=== PATIENT | female | born 1985 | race Caucasian/White ===

== ENCOUNTER 2017-01-31 18:41 | Emergency (ER) | payer MEDICAID ==
[~2017-01-31] VITALS: Ht 154.9 cm; Wt 52.0 kg
[~2017-01-31 18:41] MED LIST: DOXY100C PO; IBUP800T23 PO; MACR100C2 PO; PRED-503 PO
[2017-01-31 18:50] VITALS: BP 117/86; PULSE 98; RESP 16; TEMP 99.2; O2SAT 98
[2017-01-31 20:46] LABS: GLUCOSE,URINE NEG (NEG); KETONE, URINE NEG (NEG); NITRITE,URINE NEG (NEG)
[2017-01-31 20:56] LABS: BLOOD, URINE MOD (NEG)
[2017-01-31 20:58] LABS: COMMENT (UR) CULT NOT INDICATED; CULTURE IF INDICATED CULT NOT INDICATED; URINE COLOR YELLOW (YELLW/STRAW)
== END 2017-01-31 22:44 | disposition left against medical advice (07) ==
LOC: PHED 18:41
DX: R10.9 Unspecified abdominal pain (principal); N89.8 Other specified noninflammatory disorders of vagina
CPT/HCPCS: 81001; 99281

== ENCOUNTER 2017-02-01 17:38 | Emergency (ER) | payer MEDICAID ==
[~2017-02-01] VITALS: Ht 154.9 cm; Wt 52.0 kg
[2017-02-01 17:42] VITALS: BP 104/74; PULSE 96; RESP 14; TEMP 98.6; O2SAT 96
--- NOTE | 2017-02-01 18:15 | PD ---
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) Tobacco Use: Yes (1/2 ppd) Substance Use: No Allergies-Medications (Allergen,Severity, Reaction): Coded Allergies: Doxycycline (Verified Allergy, Severe, Rash, 02/01/17) Flagyl (Verified Adverse Reaction, Severe, GI upset, 02/01/17) Reported Meds & Prescriptions Reported Meds & Active Scripts Active No Active Prescriptions or Reported Medications Data Data Last Documented VS Vital Signs Date Time Temp Pulse Resp B/P Pulse Ox O2 Delivery O2 Flow Rate FiO2 02/01/17 18:38 15 02/01/17 17:42 98.6 96 104/74 96 Room Air Orders Urinalysis - C+S If Indicated (02/01/17 18:10) Ed Urine Pregnancytest Poc (02/01/17 18:29) Beta Hcg (Quant/Titer) (02/01/17 18:40) Complete Blood Count With Diff (02/01/17 18:40) Comprehensive Metabolic Panel (02/01/17 18:40) Sodium Chlor 0.9% 1000 Ml Inj (Ns 1000 M (02/01/17 18:45) Labs Laboratory Tests Test 02/01/17 02/01/17 18:25 18:50 Urine Color YELLOW Urine Turbidity CLEAR Urine pH 6.5 Urine Specific [place] 1.003 Urine Protein NEG mg/dL Urine Glucose (UA) NEG mg/dL Urine Ketones NEG mg/dL Urine Occult Blood TRACE Urine Nitrite NEG Urine Bilirubin NEG Urine Leukocyte Esterase NEG Urine RBC 0-3 /hpf Urine WBC 3-5 /hpf Urine Squamous Epithelial 0-5 /hpf Cells Microscopic Urinalysis Comment CULT NOT INDICATED White Blood Count 5.8 TH/MM3 Red Blood Count 4.56 MIL/MM3 Hemoglobin 14.0 GM/DL Hematocrit 41.2 % Mean Corpuscular Volume 90.3 FL Mean Corpuscular Hemoglobin 30.6 PG Mean Corpuscular Hemoglobin 33.9 % Concent Red Cell Distribution Width 11.7 % Platelet Count 301 TH/MM3 Mean Platelet Volume 7.6 FL Neutrophils (%) (Auto) 48.4 % Lymphocytes (%) (Auto) 39.2 % Monocytes (%) (Auto) 4.6 % Eosinophils (%) (Auto) 3.1 % Basophils (%) (Auto) 4.7 % Neutrophils # (Auto) 2.7 TH/MM3 Lymphocytes # (Auto) 2.3 TH/MM3 Monocytes # (Auto) 0.3 TH/MM3 Eosinophils # (Auto) 0.2 TH/MM3 Basophils # (Auto) 0.3 TH/MM3 CBC Comment DIFF FINAL Differential Comment Sodium Level 142 MEQ/L Potassium Level 4.1 MEQ/L Chloride Level 105 MEQ/L Carbon Dioxide Level 29.2 MEQ/L Anion Gap 8 MEQ/L Blood Urea Nitrogen 5 MG/DL Random Glucose 83 MG/DL Calcium Level 8.8 MG/DL Albumin 4.4 GM/DL MDM Scripts No Active Prescriptions or Reported Meds Sarahy Ag Feb 01, 2017 18:15
[2017-02-01 18:35] LABS: BLOOD, URINE TRACE (NEG); GLUCOSE,URINE NEG (NEG); KETONE, URINE NEG (NEG); NITRITE,URINE NEG (NEG); PH, URINE 6.5 (5.0-8.5)
[2017-02-01 18:42] LABS: URINE COLOR YELLOW (YELLW/STRAW)
[2017-02-01 18:43] LABS: COMMENT (UR) CULT NOT INDICATED; CULTURE IF INDICATED CULT NOT INDICATED; RBC, URINE 0-3 /hpf (0-3); SQUAMOUS EPITHELIAL CELL URINE 0-5 /hpf (0-5)
[2017-02-01] MEDS ORDERED: SODIUM CHLOR 0.9% 1000 ML INJ 1,000 ML IV ONE (18:45)
--- NOTE | 2017-02-01 18:55 | PD ---
HPI Chief Complaint: Poke In Problem/Complaint Time Seen by Provider: 18:13 Travel History International Travel<30 days: No Contact w/Intl Traveler<30days: No Traveled to known affect area: No History of Present Illness HPI 31-year-old female presents for evaluation of generalized malaise, fatigue, generalized body aches. She tells me that she believes she had a spontaneous miscarriage 4 days ago. She believes she may have a UTI. She is . She is having some light vaginal spotting today. Her LMP was 01/02/17. She is having some mild intermittent pelvic cramping. [facility] Past Medical History Medical History: Denies Significant Hx Anxiety: Yes Diminished Hearing: No Genitourinary: Yes (Herpes) Immunizations Current: Yes Tetanus Vaccination: > 5 Years Influenza Vaccination: No ?: Not LMP: 01/02/17 : 5 Para: 1 Miscarriage: 1 : 3 Past Surgical History Surgical History: No Previous Surgery Social History Alcohol Use: No Tobacco Use: Yes (11/22 PPD) Substance Use: No Allergies-Medications (Allergen,Severity, Reaction): Coded Allergies: Doxycycline (Verified Allergy, Severe, Rash, 02/01/17) Flagyl (Verified Adverse Reaction, Severe, GI upset, 02/01/17) Reported Meds & Prescriptions Reported Meds & Active Scripts Active No Active Prescriptions or Reported Medications Review of Systems Except as stated in HPI: all other systems reviewed are Neg Physical Exam Narrative GENERAL: Well-developed, well-nourished, comfortable, no acute distress. SKIN: Warm and dry. HEAD: Atraumatic. Normocephalic. EYES: Pupils equal and round. No scleral icterus. No injection or drainage. ENT: Mucous membranes pink and moist. NECK: Trachea midline. No JVD. No nuchal rigidity. CARDIOVASCULAR: Regular rate and rhythm. RESPIRATORY: No accessory muscle use. Clear to auscultation. Breath sounds equal bilaterally. GASTROINTESTINAL: Abdomen soft, non-tender, nondistended. MUSCULOSKELETAL: No obvious deformities. No clubbing. No cyanosis. No edema. NEUROLOGICAL: Awake and alert. No obvious cranial nerve deficits. Motor grossly within normal limits. Normal speech. PSYCHIATRIC: Appropriate mood and affect; insight and judgment normal. Data Data Last Documented VS Vital Signs Date Time Temp Pulse Resp B/P Pulse Ox O2 Delivery O2 Flow Rate FiO2 02/01/17 19:20 86 18 98/55 98 Room Air 02/01/17 17:42 98.6 Orders Urinalysis - C+S If Indicated (02/01/17 18:10) Ed Urine Pregnancytest Poc (02/01/17 18:29) Beta Hcg (Quant/Titer) (02/01/17 18:40) Complete Blood Count With Diff (02/01/17 18:40) Comprehensive Metabolic Panel (02/01/17 18:40) Sodium Chlor 0.9% 1000 Ml Inj (Ns 1000 M (02/01/17 18:45) Labs Laboratory Tests Test 02/01/17 02/01/17 18:25 18:50 Urine Color YELLOW Urine Turbidity CLEAR Urine pH 6.5 Urine Specific [place] 1.003 Urine Protein NEG mg/dL Urine Glucose (UA) NEG mg/dL Urine Ketones NEG mg/dL Urine Occult Blood TRACE Urine Nitrite NEG Urine Bilirubin NEG Urine Leukocyte Esterase NEG Urine RBC 0-3 /hpf Urine WBC 3-5 /hpf Urine Squamous Epithelial 0-5 /hpf Cells Microscopic Urinalysis Comment CULT NOT INDICATED White Blood Count 5.8 TH/MM3 Red Blood Count 4.56 MIL/MM3 Hemoglobin 14.0 GM/DL Hematocrit 41.2 % Mean Corpuscular Volume 90.3 FL Mean Corpuscular Hemoglobin 30.6 PG Mean Corpuscular Hemoglobin 33.9 % Concent Red Cell Distribution Width 11.7 % Platelet Count 301 TH/MM3 Mean Platelet Volume 7.6 FL Neutrophils (%) (Auto) 48.4 % Lymphocytes (%) (Auto) 39.2 % Monocytes (%) (Auto) 4.6 % Eosinophils (%) (Auto) 3.1 % Basophils (%) (Auto) 4.7 % Neutrophils # (Auto) 2.7 TH/MM3 Lymphocytes # (Auto) 2.3 TH/MM3 Monocytes # (Auto) 0.3 TH/MM3 Eosinophils # (Auto) 0.2 TH/MM3 Basophils # (Auto) 0.3 TH/MM3 CBC Comment DIFF FINAL Differential Comment Sodium Level 142 MEQ/L Potassium Level 4.1 MEQ/L Chloride Level 105 MEQ/L Carbon Dioxide Level 29.2 MEQ/L Anion Gap 8 MEQ/L Blood Urea Nitrogen 5 MG/DL Creatinine 0.86 MG/DL Estimat Glomerular Filtration 77 ML/MIN Rate Random Glucose 83 MG/DL Calcium Level 8.8 MG/DL Total Bilirubin 0.9 MG/DL Aspartate Amino Transf 16 U/L (AST/SGOT) Alanine Aminotransferase 17 U/L (ALT/SGPT) Alkaline Phosphatase 36 U/L Total Protein 7.6 GM/DL Albumin 4.4 GM/DL Human Chorionic Gonadotropin, LESS THAN 1 Quant MIU/ML MDM Medical Decision Making Medical Screen Exam Complete: Yes Emergency Medical Condition: Yes Differential Diagnosis Spontaneous , anemia, UTI, cystitis, septic , menstrual period Narrative Course Initial vital signs show heart rate 96, blood pressure 104/74, pulse ox 96% on room air, oral temp of 98.6F. CBC is unremarkable. CMP is unremarkable. Beta hCG is negative. UA shows trace occult blood, otherwise within normal limits, not suggestive of UTI. The patient was made aware of all findings. She is resting comfortably. Her abdominal exam is benign. She still feels generalized malaise and weak. I offered to perform a pelvic exam, however she states that she is sexually active with one partner whom she is to, and reports only slight vaginal spotting at this time. No foul-smelling vaginal discharge. At this point I believe she is stable for discharge home with outpatient follow-up with a primary care physician this week. She was informed on when to return to the emergency department. She verbalizes understanding and agreement with plan. Diagnosis Primary Impression: Malaise Referrals: Primary Care Physician 3 days Additional Instructions: Follow-up with a primary care physician this week. Stay hydrated with plenty of fluids. Return to the emergency department for worsening symptoms or any other concerns. Scripts No Active Prescriptions or Reported Meds Disposition: 01 DISCHARGE HOME Condition: Stable Feliciano Russo MD Feb 01, 2017 18:55
[2017-02-01 19:00] LABS: AUTOMATED NEUTROPHIL # 2.7 TH/MM3 (1.8-7.7); BASOPHIL # 0.3 TH/MM3 (0-0.2); BASOPHIL % 4.7 % (0.0-2.0); EOSINOPHIL # 0.2 TH/MM3 (0-0.4); EOSINOPHIL % 3.1 % (0.0-4.0); HEMATOCRIT 41.2 % (35.0-46.0); HEMO FLAGS DIFF FINAL; LYMPH % 39.2 % (9.0-44.0); LYMPHOCYTE # 2.3 TH/MM3 (1.0-4.8); MEAN CELL VOLUME 90.3 FL (80.0-100.0); MEAN CORPUSCULAR HEMOGLOBIN 30.6 PG (27.0-34.0); MEAN CORPUSCULAR HGB CONC 33.9 % (32.0-36.0); MONO % 4.6 % (0.0-8.0); NEUT % 48.4 % (16.0-70.0); PLATELET COUNT 301 TH/MM3 (150-450); RED BLOOD COUNT 4.56 MIL/MM3 (4.00-5.30); RED CELL DISTRIBUTION WIDTH 11.7 % (11.6-17.2); WHITE BLOOD COUNT 5.8 TH/MM3 (4.0-11.0)
[2017-02-01 19:07] LABS: CHLORIDE 105 MEQ/L (98-107); POTASSIUM 4.1 MEQ/L (3.5-5.1); SODIUM (NA) 142 MEQ/L (136-145)
[2017-02-01 19:11] LABS: ANION GAP 8 MEQ/L (5-15); BICARBONATE 29.2 MEQ/L (21.0-32.0); BLOOD UREA NITROGEN 5 MG/DL (7-18)
[2017-02-01 19:14] LABS: ALT (GPT) 17 U/L (10-53); AST (GOT) 16 U/L (15-37)
[2017-02-01 19:15] LABS: GLOMERULAR FILTRATION RATE 77 ML/MIN (>89)
[2017-02-01 19:16] LABS: TOTAL BILIRUBIN ADULT 0.9 MG/DL (0.2-1.0)
[2017-02-01 19:17] LABS: ALKALINE PHOSPHATASE 36 U/L (45-117)
[2017-02-01 19:19] LABS: BETA HCG QUANT LESS THAN 1 MIU/ML (0-5)
[2017-02-01 19:20] VITALS: BP 98/55; PULSE 86; RESP 18; O2SAT 98
== END 2017-02-01 19:58 | disposition home or self-care (01) ==
LOC: PHED 17:38
DX: R53.81 Other malaise (principal); R10.2 Pelvic and perineal pain; F17.210 Nicotine dependence, cigarettes, uncomplicated
CPT/HCPCS: 80053; 81001; 84702; 84703; 85025; 99284; J7030

== ENCOUNTER 2017-05-06 15:31 | Emergency (ER) | payer MEDICAID ==
[~2017-05-06] VITALS: Ht 154.9 cm; Wt 51.7 kg
[2017-05-06 15:38] VITALS: BP 131/82; PULSE 100; RESP 16; TEMP 98.9; O2SAT 97
[2017-05-06 16:06] LABS: BLOOD, URINE NEG (NEG); GLUCOSE,URINE NEG (NEG); KETONE, URINE NEG (NEG); NITRITE,URINE NEG (NEG)
--- NOTE | 2017-05-06 16:09 | PD ---
HPI . 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 She does not have any associated symptoms such as vaginal discharge, dyspareunia, urinary tract symptoms. She states that her pain seems to be exacerbated by sitting. She rates her pain as 3/10. PFSH Past Medical History Anxiety: Yes Diminished Hearing: No Genitourinary: Yes (Herpes) Immunizations Current: Yes Tetanus Vaccination: > 5 Years Influenza Vaccination: No ?: Not LMP: 04/18/17 : 5 Para: 1 Miscarriage: 1 : 3 Past Surgical History Surgical History: No Previous Surgery Social History Alcohol Use: No Tobacco Use: Yes (1/2 PPD) Substance Use: No Allergies-Medications (Allergen,Severity, Reaction): Coded Allergies: Doxycycline (Verified Allergy, Severe, Rash, 05/06/17) Flagyl (Verified Adverse Reaction, Severe, GI upset, 05/06/17) Reported Meds & Prescriptions Reported Meds & Active Scripts Active No Active Prescriptions or Reported Medications Review of Systems Except as stated in HPI: all other systems reviewed are Neg General / Constitutional: No: Fever, Chills Gastrointestinal: Positive: Abdominal Pain, Constipation, No: Nausea, Vomiting , Diarrhea Genitourinary: Positive: Pelvic Pain, No: Urgency, Dysuria, Dyspareunia, Discharge Physical Exam Narrative GENERAL: SKIN: Warm and dry. HEAD: Atraumatic. Normocephalic. EYES: Pupils equal and round. ENT: No nasal bleeding or discharge. Mucous membranes pink and moist. NECK: Trachea midline. CARDIOVASCULAR: Regular rate and rhythm. RESPIRATORY: No accessory muscle use. GASTROINTESTINAL: Abdomen soft, non-tender, nondistended. : Normal female external genitalia. No discharge in the vaginal vault. No cervical motion tenderness. No adnexal tenderness or masses. Uterus is small and nontender. MUSCULOSKELETAL: No obvious deformities. No edema. NEUROLOGICAL: Awake and alert. No obvious cranial nerve deficits. Motor grossly within normal limits. Normal speech. PSYCHIATRIC: Appropriate mood and affect; insight and judgment normal. Data Data Last Documented VS Vital Signs Date Time Temp Pulse Resp B/P Pulse Ox O2 Delivery O2 Flow Rate FiO2 05/06/17 15:38 98.9 100 16 131/82 97 Orders Gc And Chlamydia Pcr (05/06/17 15:43) Wet Prep Profile (05/06/17 15:43) Urinalysis - C+S If Indicated (05/06/17 15:43) Ed Urine Pregnancytest Poc (05/06/17 15:43) Abdomen, Flat & Upright (05/06/17 16:05) Labs Laboratory Tests Test 05/06/17 15:55 Urine Color YELLOW Urine Turbidity CLEAR Urine pH 6.0 Urine Specific [place] 1.004 Urine Protein NEG mg/dL Urine Glucose (UA) NEG mg/dL Urine Ketones NEG mg/dL Urine Occult Blood NEG Urine Nitrite NEG Urine Bilirubin NEG Urine Leukocyte Esterase NEG Urine RBC 0-3 /hpf Urine WBC 0-2 /hpf Urine Squamous Epithelial 0-5 /hpf Cells Microscopic Urinalysis Comment CULT NOT INDICATED Clue Cells (Wet Prep) NONE SEEN Vaginal Trichomonas (Wet Prep) NONE SEEN Vaginal Yeast (Wet Prep) NONE SEEN MDM Medical Decision Making Medical Screen Exam Complete: Yes Emergency Medical Condition: Yes Differential Diagnosis Differential diagnosis of pelvic pain includes but is not limited to UTI, PID, ectopic , spontaneous AB, constipation, viral illness Narrative Course This patient presents with about a 2 week history of pelvic pain. She has a benign pelvic exam. test is negative. She does state that she is occasionally constipated. Therefore, I have ordered a flat and upright of her abdomen. UA neg. wet prep neg. abd X-ray: Supine and upright views of the abdomen were performed. The abdominal bowel gas pattern is normal. No air fluid levels are seen. No abnormal masses, calcifications, or organomegaly is seen. The visualized lower lungs are clear. No evidence of free intraperitoneal gas. The osseous structures are unremarkable. No etiology for this patient's pelvic pain has been discovered. Diagnosis Primary Impression: Pelvic pain in female Patient Instructions: General Instructions, Pelvic Pain in Women (DC) Scripts No Active Prescriptions or Reported Meds Disposition: 01 DISCHARGE HOME Condition: Stable Demi Hampton MD May 06, 2017 16:09
[2017-05-06 16:12] LABS: URINE COLOR YELLOW (YELLW/STRAW)
[2017-05-06 16:13] LABS: COMMENT (UR) CULT NOT INDICATED; CULTURE IF INDICATED CULT NOT INDICATED; RBC, URINE 0-3 /hpf (0-3); SQUAMOUS EPITHELIAL CELL URINE 0-5 /hpf (0-5); WBC, URINE 0-2 /hpf (0-5)
--- NOTE | 2017-05-06 16:38 | RADHPO ---
EXAM DATE/TIME: 05/06/2017 16:16 [facility] COMPARISON: No previous studies available for comparison. INDICATIONS : Bilateral lower quadrant abdominal pain. MEDICAL HISTORY : None. SURGICAL HISTORY : None. ENCOUNTER: Initial ACUITY: 1 month PAIN SCORE: 3/10 LOCATION: Bilateral lower quadrant abdomen FINDINGS: Supine and upright views of the abdomen were performed. The abdominal bowel gas pattern is normal. No air fluid levels are seen. No abnormal masses, calcifications, or organomegaly is seen. The visu alized lower lungs are clear. No evidence of free intraperitoneal gas. The osseous structures are u nremarkable. CONCLUSION: Negative for free air. Sebas Holt MD FACR on May 06, 2017 at 16:35 Board Certified Radiologist. This report was verified electronically.
[2017-05-06 16:55] VITALS: BP 100/69; PULSE 87; RESP 14; O2SAT 98
[2017-05-06 19:06] LABS: CHLAMYDIA PCR NOT DETECTED (NOT DETECT); NEISSERIA PCR NOT DETECTED (NOT DETECT)
== END 2017-05-06 17:01 | disposition home or self-care (01) ==
LOC: PHED 15:31
DX: R10.2 Pelvic and perineal pain (principal)
CPT/HCPCS: 74020; 81001; 84703; 87210; 87491; 87591; 99284

== ENCOUNTER 2017-05-11 19:12 | Emergency (ER) | payer MEDICAID ==
[~2017-05-11] VITALS: Ht 165.1 cm; Wt 52.8 kg
[2017-05-11 19:49] VITALS: BP 114/70; PULSE 88; RESP 18; TEMP 99.2; O2SAT 100
--- NOTE | 2017-05-11 20:50 | PD ---
HPI Chief Complaint: Injury Time Seen by Provider: 20:30 Travel History International Travel<30 days: No Contact w/Intl Traveler<30days: No Traveled to known affect area: No History of Present Illness HPI 31-year-old female presents emergency department for evaluation of puncture wound to the left foot prior to arrival. Patient reports that while walking outside in flip flops she stepped on a mikael tack which went through her flip- flop and superficially pierced her foot. She reports that she immediately cleansed the wound with soap and water. She reports it only bled very mildly for short time and then stopped. She reports mild tenderness at the site. She does not believe there is any foreign body retained in the foot. She presented to the emergency room for tetanus shot. [facility] Past Medical History Medical History: Denies Significant Hx Anxiety: Yes Diminished Hearing: No Genitourinary: Yes (Herpes) Immunizations Current: Yes Tetanus Vaccination: Unknown Influenza Vaccination: No ?: Not LMP: 05/09/17 : 5 Para: 1 Miscarriage: 2 : 2 Past Surgical History Surgical History: No Previous Surgery Social History Alcohol Use: No (FORMER) Tobacco Use: Yes (1/2 PPD) Substance Use: No (DENIES) Allergies-Medications (Allergen,Severity, Reaction): Coded Allergies: Doxycycline (Verified Allergy, Severe, Rash, 05/06/17) Flagyl (Verified Adverse Reaction, Severe, GI upset, 05/06/17) Reported Meds & Prescriptions Reported Meds & Active Scripts Active No Active Prescriptions or Reported Medications Review of Systems Except as stated in HPI: all other systems reviewed are Neg Physical Exam Narrative GENERAL: Well-nourished, well-developed patient. SKIN: Focused skin assessment warm/dry. HEAD: Normocephalic. EYES: No scleral icterus. No injection or drainage. NECK: Supple, trachea midline. No JVD or lymphadenopathy. CARDIOVASCULAR: Regular rate and rhythm without murmurs, gallops, or rubs. RESPIRATORY: Breath sounds equal bilaterally. No accessory muscle use. GASTROINTESTINAL: Abdomen soft, non-tender, nondistended. MUSCULOSKELETAL: No cyanosis, or edema. Left foot: Superficial nonbleeding puncture wound. The wound is very difficult to find its so small. The area is nontender. No evidence of retained foreign body. No active bleeding. No surrounding erythema. BACK: Nontender without obvious deformity. No CVA tenderness. Data Data Last Documented VS Vital Signs Date Time Temp Pulse Resp B/P Pulse Ox O2 Delivery O2 Flow Rate FiO2 05/11/17 19:51 88 18 100 Room Air 05/11/17 19:49 99.2 114/70 [facility] Medical Decision Making Medical Screen Exam Complete: Yes Emergency Medical Condition: Yes Differential Diagnosis Plantar puncture wound, abrasion, very unlikely retained foreign body Narrative Course 31-year-old female since emergency department for evaluation of a left plantar puncture wound caused by a nail through her flip-flop. The wound is very superficial and do not suspect retained foreign body. Patient was offered x- rays to rule out foreign body which she declined. We discussed risks of puncture wounds. She agrees to close follow-up for recheck of the wound. Return precautions discussed. Tetanus immunization be updated today. Diagnosis Primary Impression: Puncture wound of plantar aspect of foot Qualified Code: S91.332A - Puncture wound of plantar aspect of foot, left, initial encounter Referrals: Primary Care Physician Additional Instructions: Take Tylenol or Motrin as needed for pain. Keep an eye on the area checking it daily for signs of redness, swelling, increased pain. If you developed these symptoms you need to return to emergency department or follow-up with your primary care doctor. Scripts No Active Prescriptions or Reported Meds Disposition: 01 DISCHARGE HOME Condition: Stable Sophy Jenkins May 11, 2017 20:50
[2017-05-11] MEDS ORDERED: TETANUS/DIPHTHERIA TOXOID ADULT 0.5 ML VIAL IM ONE (21:00)
== END 2017-05-11 21:00 | disposition home or self-care (01) ==
LOC: PHEFT 19:12
DX: S91.332A Puncture wound without foreign body, left foot, initial encounter (principal); F17.210 Nicotine dependence, cigarettes, uncomplicated; Z23 Encounter for immunization; W45.0XXA Nail entering through skin, initial encounter; Y93.01 Activity, walking, marching and hiking; Y92.9 Unspecified place or not applicable; Y99.8 Other external cause status
CPT/HCPCS: 90471; 90714

== ENCOUNTER 2017-10-14 02:05 | Emergency (ER) | payer MEDICAID ==
[~2017-10-14] VITALS: Ht 154.9 cm; Wt 50.0 kg
[2017-10-14 02:06] VITALS: BP 128/77; PULSE 110; RESP 15; TEMP 98.3; O2SAT 98
--- NOTE | 2017-10-14 02:36 | PD ---
HPI Chief Complaint: Injury Time Seen by Provider: 02:31 Travel History International Travel<30 days: No Contact w/Intl Traveler<30days: No Traveled to known affect area: No History of Present Illness HPI Patient comes emergency Department complaining of right thumb pain after she hyperextended it coming down on it shortly prior to arrival. Patient states it was bent all the way back then it went back to normal position. Patient applied ice prior to coming to the emergency department that helped some. Patient complaining of pain over the first metacarpal throbbing like in nature that radiates throughout her thumb. Pain is worse with certain movements. Patient is right-hand dominant. Denies . PFSH Past Medical History Anxiety: Yes Diminished Hearing: No Genitourinary: Yes Immunizations Current: Yes Tetanus Vaccination: < 5 Years Influenza Vaccination: No ?: Not LMP: 09/19/17 : 5 Para: 1 Miscarriage: 2 : 2 Past Surgical History Surgical History: No Previous Surgery Social History Alcohol Use: No (FORMER) Tobacco Use: Yes (1/2 PPD) Substance Use: No (DENIES) Allergies-Medications (Allergen,Severity, Reaction): Coded Allergies: doxycycline (Unverified Allergy, Severe, Rash, 10/14/17) metronidazole (Unverified Adverse Reaction, Severe, GI upset, 10/14/17) Reported Meds & Prescriptions Reported Meds & Active Scripts Active No Active Prescriptions or Reported Medications Review of Systems Except as stated in HPI: all other systems reviewed are Neg Physical Exam Narrative GENERAL: Well-developed, well nourished, in no acute distress, and non-ill appearing. SKIN: Focused skin assessment warm and dry. HEAD: Atraumatic. Normocephalic. EYES: Pupils equal and round. EOMI. No scleral icterus. No injection or drainage. ENT: No nasal bleeding or discharge. Mucous membranes pink and moist. NECK: Trachea midline. Supple. No nuclear rigidity. RESPIRATORY: No accessory muscle use. No respiratory distress. MUSCULOSKELETAL: No obvious deformities. No clubbing. No cyanosis. No edema. Full range of motion. Wrist: FROM and equal BL with passive flexion, extension, and pronation/supination. Capillary refill less than 2 seconds distal to injury and equal BL. FROM distal to injury and equal BL. Strength distal to injury equal BL. NV intact distal to injury. Flexion and extension of thumb equal BL. Equal strength and movement with abduction/adductions of BL fingers. Electric Tape Slitter strength equal BL. No tenderness to the anatomical snuffbox. Patient reports tenderness to palpation over distal aspect of first metacarpal right hand. There is no soft tissue swelling, ecchymosis, or crepitus. NEUROLOGICAL: Awake and alert. No obvious cranial nerve deficits. Motor grossly within normal limits. Normal speech. PSYCHIATRIC: Appropriate mood and affect; insight and judgment normal. Data Data Last Documented VS Vital Signs Date Time Temp Pulse Resp B/P (MAP) Pulse Ox O2 Delivery O2 Flow Rate FiO2 10/14/17 03:30 10/14/17 02:39 Room Air 10/14/17 02:06 98.3 110 15 98 Orders Orders Ice/Cold Pack (10/14/17 02:31) Finger ([id number]) (10/14/17 ) Ibuprofen (Motrin) (10/14/17 02:45) Splint Or Brace Apply/Monitor (10/14/17 02:51) Ed Discharge Order (10/14/17 03:29) MDM Medical Decision Making Medical Screen Exam Complete: Yes Emergency Medical Condition: Yes Differential Diagnosis Fracture, sprain, dislocation, contusion Narrative Course There is no clinical evidence for fracture. There is no clinical evidence to suspect bony injury by exam. Radiographic examination revealed no fracture seen at this time. No obvious ligamental injury or internal derangement is noted at this time. The distal extremity appears neurovascularly intact, without evidence of neurovascular injury nor compartment syndrome. Tendon exam also was intact. The effected finger was splinted. The patient was discharged with sprain and splint care instructions and given warnings for vascular compromise. The patient is to follow up with hand surgeon. The patient agrees with plan. Patient in no obvious distress upon re-evaluation. All pertinent Radiology result(s) discussed with patient. Any questions/concerns in reference to patient diagnosis/condition discussed and clarified prior to patient's discharge. Reinforced sheer importance of close follow up with patient's primary physician or primary care clinic. Instructed patient to return to ED immediately, if symptoms return/worsen. Patient showed understanding of above instructions. Further instructions and recommendations were detailed in discharge paperwork. Patient ambulated without difficulty out of ED at discharge. Diagnosis Primary Impression: Sprain of right thumb Qualified Codes: S63.601A - Unspecified sprain of right thumb, initial encounter Referrals: Antonio Fairbanks MD Patient Instructions: Finger Sprain (ED), General Instructions, Splint Care (DC ) Additional Instructions: Follow-up with your primary care physician and/or hand surgeon in 3-5 days for reevaluation. Apply ice to affected area 20 minutes per hour as needed for pain. Use [id number] Tylenol and/or ibuprofen as needed for pain. Follow instructions on the packaging. Return to the emergency department if symptoms get worse. Scripts No Active Prescriptions or Reported Meds Disposition: 01 DISCHARGE HOME Condition: Stable Tenzin Ovalle Oct 14, 2017 02:36
[2017-10-14] MEDS ORDERED: IBUPROFEN 800 MG TAB PO ONE (02:45)
--- NOTE | 2017-10-14 03:20 | RADRPT ---
EXAM DATE/TIME: 10/14/2017 00:37 [facility] COMPARISON: No previous studies available for comparison. INDICATIONS : Thumb pain. MEDICAL HISTORY : None. SURGICAL HISTORY : None. ENCOUNTER: Initial ACUITY: 1 day PAIN SCORE: 3/10 LOCATION: Right upper extremity hand, thumb, and metacarpal phalangeal joint. FINDINGS: Examination of the first digit of the right hand demonstrates no evidence of fracture or dislocation. No radiopaque foreign bodies are seen. The soft tissues are intact. CONCLUSION: Unremarkable exam. Blake Gandara MD on October 14, 2017 at 3:18 Board Certified Radiologist. This report was verified electronically.
== END 2017-10-14 03:44 | disposition home or self-care (01) ==
LOC: NEPD 02:05
DX: S63.601A Unspecified sprain of right thumb, initial encounter (principal); F41.9 Anxiety disorder, unspecified; F17.200 Nicotine dependence, unspecified, uncomplicated; X50.9XXA Other and unspecified overexertion or strenuous movements or postures, initial encounter
CPT/HCPCS: 73140; 99283; L3808

== ENCOUNTER 2017-11-12 02:04 | Emergency (ER) | payer MEDICAID ==
[~2017-11-12] VITALS: Ht 154.9 cm; Wt 50.0 kg
[2017-11-12 02:05] VITALS: BP 129/62; PULSE 86; RESP 16; TEMP 98.6; O2SAT 96
[2017-11-12] MEDS ORDERED: AMOX875T PO (03:18)
--- NOTE | 2017-11-12 03:21 | PD ---
HPI Chief Complaint: Cold / Flu Symptoms Time Seen by Provider: 03:17 Travel History International Travel<30 days: No Contact w/Intl Traveler<30days: No Traveled to known affect area: No History of Present Illness HPI This patient was examined in the presence of the nurse. 32-year-old female presents for evaluation of sore throat. Symptoms started 2 days ago. Aggravated by swallowing, sore type of pain, no leaving factors. She endorses associated subjective fevers as well as a slight cough and congestion. Denies rash, recent travel. She reports that her daughter had similar symptoms 2 weeks ago. No other complaints. [facility] Past Medical History Anxiety: Yes Diminished Hearing: No Genitourinary: Yes Immunizations Current: Yes ?: Not LMP: 10/21/17 : 5 Para: 1 Miscarriage: 2 : 2 Past Surgical History Surgical History: No Previous Surgery Social History Alcohol Use: No (FORMER) Tobacco Use: Yes (QUIT) Substance Use: No Allergies-Medications (Allergen,Severity, Reaction): Coded Allergies: doxycycline (Unverified Allergy, Severe, Rash, 11/12/17) metronidazole (Unverified Adverse Reaction, Severe, GI upset, 11/12/17) Reported Meds & Prescriptions Reported Meds & Active Scripts Active Amoxicillin 875 Mg Tab 875 Mg PO BID 10 Days Review of Systems Except as stated in HPI: all other systems reviewed are Neg Physical Exam Narrative GENERAL: Well-developed well-nourished female in no acute distress SKIN: Warm and dry. HEAD: Atraumatic. Normocephalic. EYES: Pupils equal and round. No scleral icterus. No injection or drainage. ENT: No nasal bleeding or discharge. Mucous membranes pink and moist. There is oropharyngeal erythema and exudate formation. Uvula midline with no mass effect. NECK: Trachea midline. No JVD. Tender anterior cervical lymphadenopathy is present. CARDIOVASCULAR: Regular rate and rhythm. No murmur appreciated. RESPIRATORY: No accessory muscle use. Clear to auscultation. Breath sounds equal bilaterally. GASTROINTESTINAL: Abdomen soft, non-tender, nondistended. Hepatic and splenic margins not palpable. Data Data Last Documented VS Vital Signs Date Time Temp Pulse Resp B/P (MAP) Pulse Ox O2 Delivery O2 Flow Rate FiO2 11/12/17 02:05 98.6 86 16 129/62 (84) 96 Room Air Orders Orders Influenzae A/B Antigen (11/12/17 02:21) Group A Rapid Strep Screen (11/12/17 02:21) Strep Culture (Group A) (11/12/17 02:35) Ed Discharge Order (11/12/17 03:18) Ketorolac Inj (Toradol Inj) (11/12/17 03:30) Amoxicillin (Trimox) (11/12/17 03:30) MDM Medical Decision Making Medical Screen Exam Complete: Yes Emergency Medical Condition: Yes Medical Record Reviewed: Yes Differential Diagnosis Exudative pharyngitis, tonsillitis, peritonsillar abscess, infectious mononucleosis, herpangina, epiglottitis, retropharyngeal abscess Narrative Course 32-year-old female with sore throat and subjective fevers for 2 days. Examination reveals exudative pharyngitis with tender anterior cervical lymphadenopathy. Although rapid strep screen was negative her symptoms are most consistent with streptococcal pharyngitis and therefore pending streptococcal culture results she will be started on amoxicillin. She is stable for discharge. Diagnosis Primary Impression: Exudative pharyngitis Additional Instructions: Medication as prescribed. Stay well hydrated well-nourished. Tylenol or Motrin for pain and fever. Return for any emergent medical conditions. Med/Other Pt SpecificInfo: Prescription(s) given Scripts Amoxicillin (Amoxicillin) 875 Mg Tab 875 MG PO BID for Infection for 10 Days, #19 TAB 0 Refills Prov: Carla Cruz DO 11/12/17 Disposition: 01 DISCHARGE HOME Condition: Stable Juan Ramon Feng Nov 12, 2017 03:21
[2017-11-12] MEDS ORDERED: AMOXICILLIN 875 MG TAB PO ONE (03:30)
[2017-11-12] MEDS ORDERED: KETOROLAC TROMETHAMINE 60 MG/2 ML (IM) VIAL IM ONE (03:30)
== END 2017-11-12 03:39 | disposition home or self-care (01) ==
LOC: NEPD 02:04
DX: J02.9 Acute pharyngitis, unspecified (principal); R05 Cough; R09.81 Nasal congestion; F41.9 Anxiety disorder, unspecified; Z88.8 Allergy status to other drugs, medicaments and biological substances; Z87.891 Personal history of nicotine dependence
CPT/HCPCS: 87081; 87804; 87880; 96372; 99283; J1885

== ENCOUNTER 2017-12-10 15:36 | Emergency (ER) | payer MEDICAID ==
[~2017-12-10] VITALS: Ht 154.9 cm; Wt 52.0 kg
[~2017-12-10 15:36] MED LIST changes: +AMOX875T PO; -DOXY100C PO; -IBUP800T23 PO; -MACR100C2 PO; -PRED-503 PO
[2017-12-10 15:39] VITALS: BP 122/69; PULSE 117; RESP 20; TEMP 98.2; O2SAT 98
--- NOTE | 2017-12-10 16:26 | PD ---
HPI Chief Complaint: GI Complaint Time Seen by Provider: 15:54 Travel History International Travel<30 days: No Contact w/Intl Traveler<30days: No Traveled to known affect area: No History of Present Illness HPI 32-year-old female is emergency department with question with spotting and bleeding since yesterday. She also has left-sided lower abdominal cramping. Patient's last menstrual period was 11/12/2017. Patient's urine in the department is very faintly positive. Patient states spotting and intermittent bleeding through the day today. This started yesterday. She has no nausea or vomiting. She has no fever or chills. No urinary symptoms. No diarrhea. PFSH Past Medical History Medical History: Denies Significant Hx Anxiety: Yes Diminished Hearing: No Genitourinary: Yes Immunizations Current: Yes Influenza Vaccination: No ?: Not LMP: 11/12/17 : 5 Para: 1 Miscarriage: 2 : 2 Past Surgical History Surgical History: No Previous Surgery Social History Alcohol Use: No (FORMER) Tobacco Use: Yes (QUIT) Substance Use: No Allergies-Medications (Allergen,Severity, Reaction): Coded Allergies: doxycycline (Unverified Allergy, Severe, Rash, 12/10/17) metronidazole (Unverified Adverse Reaction, Severe, GI upset, 12/10/17) Reported Meds & Prescriptions Reported Meds & Active Scripts Active Amoxicillin 875 Mg Tab 875 Mg PO BID 10 Days Review of Systems Except as stated in HPI: all other systems reviewed are Neg General / Constitutional: No: Fever Eyes: No: Visual changes HENT: No: Headaches Cardiovascular: No: Chest Pain or Discomfort Respiratory: No: Shortness of Breath Gastrointestinal: No: Abdominal Pain Genitourinary: No: Dysuria Musculoskeletal: No: Pain Skin: No Rash Neurologic: No: Weakness Psychiatric: No: Depression Endocrine: No: Polydipsia Hematologic/Lymphatic: No: Easy Bruising Physical Exam Narrative GENERAL: Patient is quite anxious but otherwise in no acute distress. SKIN: Warm and dry. Color. Normal turgor. HEAD: Atraumatic. Normocephalic. EYES: Pupils equal and round. No scleral icterus. No injection or drainage. ENT: No nasal bleeding or discharge. Mucous membranes pink and moist. Pharynx is clear. Airways patent. NECK: Trachea midline. Supple and nontender. CARDIOVASCULAR: Regular rate and rhythm. No murmurs gallops or rubs. RESPIRATORY: No accessory muscle use. Clear to auscultation. Breath sounds equal bilaterally. GASTROINTESTINAL: Abdomen soft, mild left lower quadrant discomfort, nondistended. Hepatic and splenic margins not palpable. Patient is noted to angulated without difficulty and 6 crosslegged on the bed. MUSCULOSKELETAL: Extremities without clubbing, cyanosis, or edema. No obvious deformities. NEUROLOGICAL: Awake and alert. No obvious cranial nerve deficits. Motor grossly within normal limits. Five out of 5 muscle strength in the arms and legs. Normal speech. PSYCHIATRIC: Appropriate mood and affect; insight and judgment normal. Data Data Last Documented VS Vital Signs Date Time Temp Pulse Resp B/P (MAP) Pulse Ox O2 Delivery O2 Flow Rate FiO2 12/10/17 15:54 17 12/10/17 15:39 98.2 117 122/69 (86) 98 Orders Orders Beta Hcg (Quant/Titer) (12/10/17 16:22) Complete Blood Count With Diff (12/10/17 16:22) Comprehensive Metabolic Panel (12/10/17 16:22) Us Pelvis (Ques Preg/Ectopic) (12/10/17 ) Urinalysis - C+S If Indicated (12/10/17 16:22) Ed Urine Pregnancytest Poc (12/10/17 16:22) Labs Laboratory Tests Test 12/10/17 16:44 White Blood Count 17.6 TH/MM3 Red Blood Count 4.33 MIL/MM3 Hemoglobin 13.4 GM/DL Hematocrit 39.4 % Mean Corpuscular Volume 90.9 FL Mean Corpuscular Hemoglobin 31.0 PG Mean Corpuscular Hemoglobin Concent 34.1 % Red Cell Distribution Width 13.1 % Platelet Count 309 TH/MM3 Mean Platelet Volume 7.4 FL Neutrophils (%) (Auto) 81.4 % Lymphocytes (%) (Auto) 12.3 % Monocytes (%) (Auto) 5.6 % Eosinophils (%) (Auto) 0.3 % Basophils (%) (Auto) 0.4 % Neutrophils # (Auto) 14.3 TH/MM3 Lymphocytes # (Auto) 2.2 TH/MM3 Monocytes # (Auto) 1.0 TH/MM3 Eosinophils # (Auto) 0.1 TH/MM3 Basophils # (Auto) 0.1 TH/MM3 CBC Comment DIFF FINAL Differential Comment Urine Color LIGHT-YELLOW Urine Turbidity CLEAR Urine pH 5.5 Urine Specific [place] 1.005 Urine Protein NEG mg/dL Urine Glucose (UA) NEG mg/dL Urine Ketones NEG mg/dL Urine Occult Blood SMALL Urine Nitrite NEG Urine Bilirubin NEG Urine Urobilinogen LESS THAN 2.0 MG/DL Urine Leukocyte Esterase NEG Urine RBC LESS THAN 1 /hpf Urine WBC 1 /hpf Urine Squamous Epithelial Cells 1 /hpf Microscopic Urinalysis Comment CULT NOT INDICATED Blood Urea Nitrogen 6 MG/DL Creatinine 0.92 MG/DL Random Glucose 81 MG/DL Total Protein 7.6 GM/DL Albumin 4.3 GM/DL Calcium Level 9.4 MG/DL Alkaline Phosphatase 46 U/L Aspartate Amino Transf (AST/SGOT) 15 U/L Alanine Aminotransferase (ALT/SGPT) 19 U/L Total Bilirubin 1.6 MG/DL Sodium Level 141 MEQ/L Potassium Level 3.7 MEQ/L Chloride Level 105 MEQ/L Carbon Dioxide Level 29.1 MEQ/L Anion Gap 7 MEQ/L Estimat Glomerular Filtration Rate 71 ML/MIN Human Chorionic Gonadotropin, Quant LESS THAN 1 MIU/ML MDM Medical Decision Making Medical Screen Exam Complete: Yes Emergency Medical Condition: Yes Differential Diagnosis Very early . Threatened . Ectopic . Narrative Course Patient is medically stable at time of exam. Labs ordered including CBC, CMP, serum hCG, urinalysis. Urine was mildly positive. Ultrasound of the pelvis is ordered to rule out ectopic . CBC shows leukocytosis of 17.6 without significant findings otherwise. Urinalysis was unremarkable. CMP is normal. HCG is less than 1. Ultrasound also unremarkable. Patient is felt to be starting her normal period, without viable . This could've been a very early spontaneous . Patient follow-up with her primary care or ENVIRONMENTAL PROFESSIONAL. Diagnosis Primary Impression: Vaginal bleeding Referrals: Modeling And Simulation Analyst Patient Instructions: General Instructions, Miscarriage (ED) Additional Instructions: CBC shows leukocytosis of 17.6 without significant findings otherwise. Urinalysis was unremarkable. CMP is normal. HCG is less than 1. Ultrasound also unremarkable. Patient is felt to be starting her normal period, without viable . This could've been a very early spontaneous . Patient follow-up with her primary care or ENVIRONMENTAL PROFESSIONAL. Med/Other Pt SpecificInfo: No Meds Exist/No RX given Disposition: DISCHARGE HOME Condition: Stable Thai Root Dec 10, 2017 16:26
--- NOTE | 2017-12-10 16:42 | PD ---
Physical Exam Date Seen by Provider: Dec 10, 2017 Narrative Patient presents concerned that she has an ectopic . Data Data Last Documented VS Vital Signs Date Time Temp Pulse Resp B/P (MAP) Pulse Ox O2 Delivery O2 Flow Rate FiO2 12/10/17 15:54 17 12/10/17 15:39 98.2 117 122/69 (86) 98 Orders Orders Beta Hcg (Quant/Titer) (12/10/17 16:22) Complete Blood Count With Diff (12/10/17 16:22) Comprehensive Metabolic Panel (12/10/17 16:22) Us Pelvis (Ques Preg/Ectopic) (12/10/17 ) Urinalysis - C+S If Indicated (12/10/17 16:22) Ed Urine Pregnancytest Poc (12/10/17 16:22) MDM Supervised Visit with BABATUNDE: Yes Narrative Course I, Dr. Hampton, have reviewed the advance practice practitioner's documentation and am in agreement, met with the patient face to face, made the diagnosis, and the medical decision making was done by me. *My assessment and Findings: The patient has been ambulatory about the department in no distress. She does not appear to have any pain with ambulation. Urine test is faintly positive. Quantitative hCG and ultrasound are pending. Please see Jose Root PA-C's note for results of laboratory and radiographic evaluation, ED course, final diagnosis and disposition Condition: Stable Demi Hampton MD Dec 10, 2017 16:42
[2017-12-10 17:08] LABS: BILIRUBIN, URINE NEG (NEG); BLOOD, URINE SMALL (NEG); GLUCOSE,URINE NEG (NEG); KETONE, URINE NEG (NEG); NITRITE,URINE NEG (NEG); PH, URINE 5.5 (5.0-8.5); SQUAMOUS EPITHELIAL CELL URINE 1 /hpf (0-5); URINE COLOR LIGHT-YELLOW (YELLW/STRAW); URINE LEUKOCYTE ESTERASE NEG (NEG)
[2017-12-10 17:09] LABS: AUTOMATED NEUTROPHIL # 14.3 TH/MM3 (1.8-7.7); BASOPHIL # 0.1 TH/MM3 (0-0.2); BASOPHIL % 0.4 % (0.0-2.0); EOSINOPHIL # 0.1 TH/MM3 (0-0.4); EOSINOPHIL % 0.3 % (0.0-4.0); HEMATOCRIT 39.4 % (35.0-46.0); HEMOGLOBIN 13.4 GM/DL (11.6-15.3); LYMPH % 12.3 % (9.0-44.0); LYMPHOCYTE # 2.2 TH/MM3 (1.0-4.8); MEAN CELL VOLUME 90.9 FL (80.0-100.0); MEAN CORPUSCULAR HGB CONC 34.1 % (32.0-36.0); MEAN PLATELET VOLUME 7.4 FL (7.0-11.0); MONO % 5.6 % (0.0-8.0); NEUT % 81.4 % (16.0-70.0); PLATELET COUNT 309 TH/MM3 (150-450); RED BLOOD COUNT 4.33 MIL/MM3 (4.00-5.30); RED CELL DISTRIBUTION WIDTH 13.1 % (11.6-17.2); WHITE BLOOD COUNT 17.6 TH/MM3 (4.0-11.0)
[2017-12-10 17:24] LABS: ALBUMIN 4.3 GM/DL (3.4-5.0); AST (GOT) 15 U/L (15-37); BICARBONATE 29.1 MEQ/L (21.0-32.0); BLOOD UREA NITROGEN 6 MG/DL (7-18); CALCIUM 9.4 MG/DL (8.5-10.1); CHLORIDE 105 MEQ/L (98-107); CREATININE 0.92 MG/DL (0.50-1.00); GLOMERULAR FILTRATION RATE 71 ML/MIN (>89); GLUCOSE,RANDOM 81 MG/DL (74-106); SODIUM (NA) 141 MEQ/L (136-145)
[2017-12-10 17:25] LABS: ALT (GPT) 19 U/L (10-53)
[2017-12-10 17:28] LABS: ALKALINE PHOSPHATASE 46 U/L (45-117); TOTAL BILIRUBIN ADULT 1.6 MG/DL (0.2-1.0); TOTAL PROTEIN 7.6 GM/DL (6.4-8.2)
--- NOTE | 2017-12-10 17:59 | RADRPT ---
EXAM DATE/TIME: 12/10/2017 17:26 [place] COMPARISON: US PELVIS - COMPLETE (CABLE INSTALLATION MANAGER,NON-PREG), March 19, 2015, 18:43. INDICATIONS : Pelvic pain/bleeding. MEDICAL HISTORY : Glasses. Anxiety. SURGICAL HISTORY : None. ENCOUNTER: Initial ACUITY: 2 days PAIN SCORE: 3/10 LOCATION: Bilateral pelvis MEASUREMENTS: UTERUS: 8.7 x 5.4 x 4.5 cm ENDOMETRIAL STRIPE: 7 mm RIGHT OVARY: 3.1 x 2.5 x 1.9 cm LEFT OVARY: 2.6 x 2.2 x 1.8 cm FINDINGS: UTERUS: The myometrium has a heterogeneous echotexture without mass. RIGHT OVARY: Ovary contains no mass or significant cystic lesion. LEFT OVARY: Ovary contains no mass or significant cystic lesion. MISCELLANEOUS: No free fluid. CONCLUSION: Uterus is slightly heterogeneous otherwise unremarkable study. Brandt Goldman MD on December 10, 2017 at 17:56 Board Certified Radiologist. This report was verified electronically.
[2017-12-10 18:56] VITALS: BP 119/68
== END 2017-12-10 18:57 | disposition home or self-care (01) ==
LOC: NEPD 15:36
DX: N93.9 Abnormal uterine and vaginal bleeding, unspecified (principal); F41.9 Anxiety disorder, unspecified; Z87.891 Personal history of nicotine dependence
CPT/HCPCS: 76856; 80053; 81001; 84702; 84703; 85025; 99284

== ENCOUNTER 2018-01-31 21:40 | Emergency (ER) | payer MEDICAID ==
[~2018-01-31] VITALS: Ht 154.9 cm; Wt 52.0 kg
[2018-01-31 22:08] VITALS: BP 121/75; PULSE 89; RESP 16; TEMP 98.6; O2SAT 100
== END 2018-01-31 23:16 | disposition left against medical advice (07) ==
LOC: NED 21:40
DX: N94.9 Unspecified condition associated with female genital organs and menstrual cycle (principal)
CPT/HCPCS: 99281

== ENCOUNTER 2018-03-08 11:45 | Emergency (ER) | payer MEDICAID ==
[~2018-03-08] VITALS: Ht 154.9 cm; Wt 54.1 kg
[2018-03-08 11:48] VITALS: BP 139/71; PULSE 105; RESP 18; TEMP 98.8; O2SAT 98
--- NOTE | 2018-03-08 12:02 | PD ---
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 Patient had unprotected intercourse about a week ago. For last few days she has noted foul-smelling vaginal discharge with feeling uncomfortable sensation in her pelvic region. Her daughter at home had flulike symptoms last week. She reports having had a fever of 99.3F yesterday. No history of abdominal surgeries. No vaginal bleeding. No dysuria. LMP was February 25. [facility] Past Medical History Anxiety: Yes Diminished Hearing: No Genitourinary: Yes Immunizations Current: Yes ?: Not LMP: 02/2018 : 5 Para: 1 Miscarriage: 2 : 2 Social History Alcohol Use: No (FORMER) Tobacco Use: Yes Substance Use: No Allergies-Medications (Allergen,Severity, Reaction): Coded Allergies: doxycycline (Unverified Allergy, Severe, Rash, 03/08/18) metronidazole (Unverified Adverse Reaction, Severe, GI upset, 03/08/18) Reported Meds & Prescriptions Reported Meds & Active Scripts Active Amoxicillin 875 Mg Tab 875 Mg PO BID 10 Days Review of Systems Except as stated in HPI: all other systems reviewed are Neg Physical Exam Narrative GENERAL: Well-developed, well-nourished, comfortable, no apparent distress. SKIN: Focused skin assessment warm/dry. HEAD: Atraumatic. Normocephalic. EYES: Pupils equal and round. No scleral icterus. No injection or drainage. ENT: Mucous membranes pink and moist. CARDIOVASCULAR: Regular rate and rhythm. RESPIRATORY: No accessory muscle use. Clear to auscultation. Breath sounds equal bilaterally. GASTROINTESTINAL: Abdomen soft, non-tender, nondistended. FAMILY SERVICE AIDE: Exam performed in the presence of female nurse. Normal external genitalia. Scant/whitish/slightly foul-smelling vaginal discharge. Normal- appearing cervix. Mild uterine tenderness. No CMT. No adnexal masses or tenderness. MUSCULOSKELETAL: No obvious deformities. No clubbing. No cyanosis. No edema. NEUROLOGICAL: Awake and alert. No obvious cranial nerve deficits. Motor grossly within normal limits. Normal speech. PSYCHIATRIC: Appropriate mood and affect; insight and judgment normal. Data Data Last Documented VS Vital Signs Date Time Temp Pulse Resp B/P (MAP) Pulse Ox O2 Delivery O2 Flow Rate FiO2 03/08/18 11:48 98.8 105 18 139/71 (93) 98 Orders Orders Beta Hcg (Quant/Titer) (03/08/18 11:58) Complete Blood Count With Diff (03/08/18 11:58) Comprehensive Metabolic Panel (03/08/18 11:58) Gc And Chlamydia Pcr (03/08/18 11:58) Wet Prep Profile (03/08/18 11:58) Urinalysis - C+S If Indicated (03/08/18 11:58) Ed Urine Pregnancytest Poc (03/08/18 11:58) Creatine Kinase (Cpk) (03/08/18 11:58) Influenzae A/B Antigen (03/08/18 11:58) Ceftriaxone Inj (Rocephin Inj) (03/08/18 12:30) Azithromycin (Zithromax) (03/08/18 12:30) I-Stat Profile (03/08/18 12:10) Labs Laboratory Tests Test 03/08/18 12:00 03/08/18 12:10 03/08/18 12:30 Urine Collection Type CLEAN CATCH Urine Color YELLOW Urine Turbidity CLEAR Urine pH 6.0 Urine Specific [place] 1.025 Urine Protein NEG mg/dL Urine Glucose (UA) NEG mg/dL Urine Ketones NEG mg/dL Urine Occult Blood TRACE Urine Nitrite NEG Urine Bilirubin NEG Urine Urobilinogen 0.2 MG/DL Urine Leukocyte Esterase NEG Urine RBC 0-3 /hpf Urine WBC 0-2 /hpf Urine Squamous Epithelial Cells > 8 /hpf Microscopic Urinalysis Comment CULT NOT INDICATED Urine Collection Time 12:00 White Blood Count 6.5 TH/MM3 Red Blood Count 5.10 MIL/MM3 Hemoglobin 15.2 GM/DL Bedside Hemoglobin G/DL Hematocrit 47.1 % Bedside Hematocrit % Mean Corpuscular Volume 92.2 FL Mean Corpuscular Hemoglobin 29.7 PG Mean Corpuscular Hemoglobin Concent 32.2 % Red Cell Distribution Width 12.0 % Platelet Count 366 TH/MM3 Mean Platelet Volume 7.7 FL Neutrophils (%) (Auto) 66.6 % Lymphocytes (%) (Auto) 24.3 % Monocytes (%) (Auto) 4.6 % Eosinophils (%) (Auto) 3.8 % Basophils (%) (Auto) 0.7 % Neutrophils # (Auto) 4.4 TH/MM3 Lymphocytes # (Auto) 1.6 TH/MM3 Monocytes # (Auto) 0.3 TH/MM3 Eosinophils # (Auto) 0.2 TH/MM3 Basophils # (Auto) 0.0 TH/MM3 CBC Comment DIFF FINAL Differential Comment Bedside Sodium 140 MMOL/L Bedside Potassium 4.0 MMOL/L Bedside Chloride 100 MMOL/L Bedside Blood Urea Nitrogen 8 MG/DL Bedside Creatinine 1.0 MG/DL Bedside Glucose 74 MG/DL Clue Cells (Wet Prep) NONE SEEN Vaginal Trichomonas (Wet Prep) NONE SEEN Vaginal Yeast (Wet Prep) NONE SEEN MDM Medical Decision Making Medical Screen Exam Complete: Yes Emergency Medical Condition: Yes Differential Diagnosis PID, BV, trichomonas, vulvovaginal candidiasis, UTI, acute intra-abdominal/ surgical abdomen unlikely, influenza, metabolic abnormality Narrative Course Patient was empirically treated with Rocephin and azithromycin. Urine is negative. Vital signs reviewed. Initial heart rate was 105 in triage, 87 while in the exam room. CBC is essentially unremarkable. [id number] BMP is unremarkable. UA is not suggestive of UTI. Wet prep is negative. Again the patient was empirically treated for gonorrhea and chlamydia. Abdominal exam is benign. She is stable for discharge home with outpatient follow-up with her front desk coordinator this week. She was advised on when to return to the emergency department. She verbalizes understanding and agreement with plan. She verbalizes understanding and agreement with plan. Diagnosis Primary Impression: Vaginal discharge Referrals: [facility] 1 week Additional Instructions: Follow-up with your front desk coordinator this week. Return to the emergency department for worsening symptoms or any other concerns. Disposition: 01 DISCHARGE HOME Condition: Stable Feliciano Russo MD Mar 08, 2018 12:02
[2018-03-08 12:25] LABS: AUTOMATED NEUTROPHIL # 4.4 TH/MM3 (1.8-7.7); BASOPHIL % 0.7 % (0.0-2.0); EOSINOPHIL # 0.2 TH/MM3 (0-0.4); EOSINOPHIL % 3.8 % (0.0-4.0); HEMATOCRIT 47.1 % (35.0-46.0); HEMOGLOBIN 15.2 GM/DL (11.6-15.3); LYMPH % 24.3 % (9.0-44.0); LYMPHOCYTE # 1.6 TH/MM3 (1.0-4.8); MEAN CELL VOLUME 92.2 FL (80.0-100.0); MEAN CORPUSCULAR HEMOGLOBIN 29.7 PG (27.0-34.0); MEAN CORPUSCULAR HGB CONC 32.2 % (32.0-36.0); MEAN PLATELET VOLUME 7.7 FL (7.0-11.0); MONO % 4.6 % (0.0-8.0); MONOCYTE # 0.3 TH/MM3 (0-0.9); NEUT % 66.6 % (16.0-70.0); PLATELET COUNT 366 TH/MM3 (150-450); WHITE BLOOD COUNT 6.5 TH/MM3 (4.0-11.0)
[2018-03-08] MEDS ORDERED: cefTRIAXone INJ 1,000 MG in SODIUM CHLORIDE 0.9% INJ 100 ML IV ONE (12:30)
[2018-03-08] MEDS ORDERED: AZITHROMYCIN 250 MG TAB PO ONE (12:30)
[2018-03-08 12:47] LABS: BILIRUBIN, URINE NEG (NEG); BLOOD, URINE TRACE (NEG); GLUCOSE,URINE NEG (NEG); KETONE, URINE NEG (NEG); NITRITE,URINE NEG (NEG); URINE COLOR YELLOW (YELLW/STRAW); URINE LEUKOCYTE ESTERASE NEG (NEG)
[2018-03-08 12:52] LABS: RBC, URINE 0-3 /hpf (0-3); SQUAMOUS EPITHELIAL CELL URINE > 8 /hpf (0-5); WBC, URINE 0-2 /hpf (0-5)
[2018-03-08 13:50] VITALS: BP 100/46
[2018-03-08 14:06] LABS: ALBUMIN 4.5 GM/DL (3.4-5.0); ALT (GPT) 20 U/L (10-53); AST (GOT) 13 U/L (15-37); BICARBONATE 27.4 MEQ/L (21.0-32.0); BLOOD UREA NITROGEN 8 MG/DL (7-18); CALCIUM 9.2 MG/DL (8.5-10.1); CHLORIDE 105 MEQ/L (98-107); GLOMERULAR FILTRATION RATE 58 ML/MIN (>89); GLUCOSE,RANDOM 72 MG/DL (74-106); SODIUM (NA) 141 MEQ/L (136-145)
[2018-03-08 14:10] LABS: ALKALINE PHOSPHATASE 49 U/L (45-117); TOTAL BILIRUBIN ADULT 1.1 MG/DL (0.2-1.0); TOTAL PROTEIN 8.1 GM/DL (6.4-8.2)
== END 2018-03-08 13:55 | disposition home or self-care (01) ==
LOC: PHED 11:45
DX: N89.8 Other specified noninflammatory disorders of vagina (principal); F41.9 Anxiety disorder, unspecified; Z72.0 Tobacco use; Z88.8 Allergy status to other drugs, medicaments and biological substances
CPT/HCPCS: 80053; 81001; 82550; 84702; 84703; 85025; 87210; 87491; 87591; 87804; 96365; 99284; J0696; 80048

== ENCOUNTER 2018-03-30 13:18 | Emergency (ER) | payer MEDICAID ==
[~2018-03-30] VITALS: Ht 154.9 cm; Wt 53.0 kg
[2018-03-30 13:20] VITALS: BP 128/65; PULSE 98; RESP 18; TEMP 98.4; O2SAT 98
--- NOTE | 2018-03-30 13:57 | PD ---
HPI Chief Complaint: ENT Complaint Time Seen by Provider: 13:34 Travel History International Travel<30 days: No Contact w/Intl Traveler<30days: No Traveled to known affect area: No History of Present Illness HPI 32-year-old female presents emergency department for evaluation of white spots on the posterior pharynx, generalized body aches and neck tenderness that is been present since yesterday. Patient states that she has been using [employer] to research symptoms and is concerned that there is a serious illness at this point. Patient states that she has had a lot of stress in her life and feels very anxious. Patient is complaining of some mild anterior neck discomfort but says she does have full range of motion of her neck without any issues. She noticed 2 white spots on the left tonsil yesterday. She denies fevers or chills. Her last menstrual period was March 20. She denies any sexual contact activities since then. She says that her daughter was sick with a 24 hour 'bug ' 2 weeks ago and thinks she may have gotten her sick. Denies nausea, vomiting, diarrhea. No cough/congestion. Has no other complaints today. PFSH Past Medical History Medical History: Denies Significant Hx Anxiety: Yes Diminished Hearing: No Genitourinary: Yes Immunizations Current: Yes Tetanus Vaccination: < 5 Years Influenza Vaccination: No ?: Not LMP: 02/2018 : 5 Para: 1 Miscarriage: 2 : 2 Past Surgical History Surgical History: No Previous Surgery Social History Alcohol Use: No (FORMER) Tobacco Use: Yes Substance Use: No Allergies-Medications (Allergen,Severity, Reaction): Coded Allergies: doxycycline (Unverified Allergy, Severe, Rash, 03/30/18) metronidazole (Unverified Adverse Reaction, Severe, GI upset, 03/30/18) Reported Meds & Prescriptions Reported Meds & Active Scripts Active Review of Systems Except as stated in HPI: all other systems reviewed are Neg Physical Exam Narrative GENERAL: Well-nourished, well-developed patient. SKIN: Focused skin assessment warm/dry. HEAD: Normocephalic. EYES: No scleral icterus. No injection or drainage. NECK: Supple, trachea midline. No JVD. Mild anterior cervical lymphadenopathy. THROAT: No pharyngeal injection or tonsillar hypertrophy. Airway is patent. Left tonsillar exudate present CARDIOVASCULAR: Regular rate and rhythm without murmurs, gallops, or rubs. RESPIRATORY: Breath sounds equal bilaterally. No accessory muscle use. GASTROINTESTINAL: Abdomen soft, non-tender, nondistended. No CVA tenderness MUSCULOSKELETAL: No cyanosis, or edema. BACK: Nontender without obvious deformity. No CVA tenderness. Data Data Last Documented VS Vital Signs Date Time Temp Pulse Resp B/P (MAP) Pulse Ox O2 Delivery O2 Flow Rate FiO2 03/30/18 13:20 98.4 98 18 128/65 (86) 98 Orders Orders Influenzae A/B Antigen (03/30/18 13:43) Group A Rapid Strep Screen (03/30/18 13:43) Strep Culture (Group A) (03/30/18 13:45) MDM Medical Decision Making Medical Screen Exam Complete: Yes Emergency Medical Condition: Yes Differential Diagnosis Strep pharyngitis, influenza, viral syndrome, malaise Narrative Course 32-year-old female presents to emergency department for evaluation of generalized body aches, increased stress, posterior pharyngeal exudates, and anterior neck discomfort since yesterday. Patient decided to come in today because she was researching her symptoms on [email or web address] and was concerned for a more serious illness. Vital signs are stable. Patient has a mildly elevated heart rate at 98. Physical exam findings consistent with a well-developed, well-nourished 32-year- old female, anxious. Left posterior tonsillar exudates present, mild anterior cervical lymphadenopathy, no meningismus. Abdomen soft, nontender, no CVA tenderness. Flu and strep ordered for evaluation. Diagnosis Primary Impression: Viral syndrome Referrals: [facility] Primary Care Physician Additional Instructions: Use salt water gargles for the white discharge. You may use a drop of honey and lemon in a cup of warm water to soothe your throat. (If you are greater than 1 year old) Ensure good hydration and a nutritious diet. Note that viral infection symptoms may last for several weeks if you have a viral illness. Follow up with your primary physician within 2-3 days. Return to the ED for worsening or persistent symptoms. Disposition: 01 DISCHARGE HOME Condition: Stable Gabrielle Jiménez March 30, 2018 13:57
== END 2018-03-30 14:57 | disposition home or self-care (01) ==
LOC: PHEFT 13:18
DX: B34.9 Viral infection, unspecified (principal); F41.9 Anxiety disorder, unspecified; Z88.8 Allergy status to other drugs, medicaments and biological substances; Z72.0 Tobacco use
CPT/HCPCS: 87081; 87804; 87880; 99283

== ENCOUNTER 2018-04-01 12:43 | Emergency (ER) | payer MEDICAID ==
[~2018-04-01] VITALS: Ht 154.9 cm; Wt 54.0 kg
[2018-04-01 12:52] VITALS: BP 125/75; PULSE 101; RESP 16; TEMP 99.1; O2SAT 100
[2018-04-01] MEDS ORDERED: AMOX500T PO (13:51)
--- NOTE | 2018-04-01 13:52 | PD ---
HPI Chief Complaint: Cold / Flu Symptoms Time Seen by Provider: 13:23 Travel History International Travel<30 days: No Contact w/Intl Traveler<30days: No Traveled to known affect area: No History of Present Illness HPI This is a 32-year-old female here with sore throat 1 week. She reports she noticed white patches in the back of the throat. No difficulty swallowing. Subjective fever. Symptom severity is mild. PFSH Past Medical History Anxiety: Yes Diminished Hearing: No Genitourinary: Yes Immunizations Current: Yes Tetanus Vaccination: < 5 Years Influenza Vaccination: No ?: Not LMP: 03/20/18 : 5 Para: 1 Miscarriage: 2 : 2 Social History Alcohol Use: No (FORMER) Tobacco Use: Yes (1PPD) Substance Use: No Allergies-Medications (Allergen,Severity, Reaction): Coded Allergies: doxycycline (Verified Allergy, Severe, Rash, 04/01/18) metronidazole (Verified Adverse Reaction, Severe, GI upset, 04/01/18) Reported Meds & Prescriptions Reported Meds & Active Scripts Active No Active Prescriptions or Reported Medications Review of Systems Except as stated in HPI: all other systems reviewed are Neg General / Constitutional: No: Fever HENT: Positive: Sore Throat, No: Headaches Cardiovascular: No: Chest Pain or Discomfort Respiratory: No: Shortness of Breath Gastrointestinal: No: Abdominal Pain Genitourinary: No: Dysuria Physical Exam Narrative GENERAL: Alert and well-appearing 32-year-old female SKIN: Warm and dry. HEAD: Normocephalic. EYES: No injection or drainage. ENT: Pharyngeal erythema with mild tonsillar hypertrophy and exudate. Uvula is midline. Airways patent. Normal phonation. NECK: Supple, trachea midline. No lymphadenopathy. CARDIOVASCULAR: Regular rate and rhythm without murmurs, gallops, or rubs. RESPIRATORY: Breath sounds equal bilaterally. No accessory muscle use. Data Data Last Documented VS Vital Signs Date Time Temp Pulse Resp B/P (MAP) Pulse Ox O2 Delivery O2 Flow Rate FiO2 04/01/18 12:52 99.1 101 16 125/75 (92) 100 MDM Medical Decision Making Medical Screen Exam Complete: Yes Emergency Medical Condition: Yes Differential Diagnosis Strep pharyngitis, viral pharyngitis, mononucleosis Narrative Course 32-year-old female here with exudative tonsillitis. She is nontoxic appearing. She will be treated with amoxicillin. Diagnosis Primary Impression: Tonsillitis Referrals: Primary Care Physician Additional Instructions: Medication as directed. Follow-up with your primary doctor. Return if you have new or worsening symptoms per Scripts Amoxicillin (Amoxicillin) 500 Mg Tab 500 MG PO TID for Infection for 10 Days, TAB 0 Refills Prov: Sophy Jenkins 04/01/18 Disposition: 01 DISCHARGE HOME Condition: Stable Sophy Jenkins April 01, 2018 13:52
== END 2018-04-01 14:04 | disposition home or self-care (01) ==
LOC: PHED 12:43 → PHEFT 14:04
DX: J03.90 Acute tonsillitis, unspecified (principal); F41.9 Anxiety disorder, unspecified; F17.200 Nicotine dependence, unspecified, uncomplicated
CPT/HCPCS: 99283

== ENCOUNTER 2018-04-28 17:37 | Emergency (ER) | payer SELFPAY ==
[~2018-04-28 17:37] MED LIST changes: +AMOX500T PO; -AMOX875T PO
[2018-04-28 17:39] VITALS: BP 146/67; PULSE 95; RESP 16; TEMP 98.6; O2SAT 99
--- NOTE | 2018-04-28 18:19 | PD ---
HPI Chief Complaint: ENT Complaint Time Seen by Provider: 18:02 Travel History International Travel<30 days: No Contact w/Intl Traveler<30days: No Traveled to known affect area: No History of Present Illness HPI 32-year-old female presents to the emergency department complaint of sore throat 2 months. Said she was seen here a few weeks ago and was given amoxicillin, which she reports not taking the full prescription. Reports subjective fevers. Says the pain radiates to her ears. Denies ear pain. Denies vomiting. Says she can see white patches in the back of her throat. Denies lump in throat, difficulty swallowing, unusual drooling. Says her lymph nodes in her neck are swollen on and off, but not now. Says her daughter was sick a few weeks ago and thinks she got her sick. says it is more of like an irritation way in the back of her throat. Has been taking ibuprofen for symptom management. Symptoms are mild in severity. Aggravated with swallowing. No known relieving factors. No primary care provider. Allergies to doxycycline and Flagyl. Has no other medical complaints. No other modifying factors or associated signs and symptoms. PFSH Past Medical History Anxiety: Yes Diminished Hearing: No Genitourinary: Yes Immunizations Current: Yes ?: Not : 5 Para: 1 Miscarriage: 2 : 2 Social History Alcohol Use: No (FORMER) Tobacco Use: Yes (1PPD) Substance Use: No Allergies-Medications (Allergen,Severity, Reaction): Coded Allergies: doxycycline (Verified Allergy, Severe, Rash, 04/28/18) metronidazole (Verified Adverse Reaction, Severe, GI upset, 04/28/18) Reported Meds & Prescriptions Reported Meds & Active Scripts Active Review of Systems Except as stated in HPI: all other systems reviewed are Neg Physical Exam Narrative GENERAL: Well-nourished, well-developed patient, in no acute distress; afebrile , nontoxic-appearing SKIN: Warm and dry. No rash. HEAD: Atraumatic. Normocephalic. EYES: Pupils equal and round. No scleral icterus. No injection or drainage. ENT: Mucosa pink and dry. Pharynx without erythema, exudate, and edema. No Uvular edema. No uvular, palatal, or tonsillar deviation. Airway patent. EARS: Bilateral pinnae and external canals appear within normal limits. Bilateral tympanic membranes without erythema, dullness or perforation.. NECK: Trachea midline. No Anterior cervical lymphadenopathy and tenderness. CARDIOVASCULAR: Regular rate RESPIRATORY: No accessory muscle use. GASTROINTESTINAL: Flat. MUSCULOSKELETAL: No obvious deformities. No clubbing. No cyanosis. No edema.BACK: No CVA tenderness. NEUROLOGICAL: Awake and alert. Oriented 3. No obvious cranial nerve deficits. Motor grossly within normal limits. Normal speech. Moves all extremities. PSYCHIATRIC: Appropriate mood and affect; insight and judgment normal. Data Data Last Documented VS Vital Signs Date Time Temp Pulse Resp B/P (MAP) Pulse Ox O2 Delivery O2 Flow Rate FiO2 04/28/18 17:39 98.6 95 16 146/67 (93) 99 Orders Orders Group A Rapid Strep Screen (04/28/18 18:08) Monoscreen (04/28/18 18:13) Strep Culture (Group A) (04/28/18 18:10) Labs Laboratory Tests Test 04/28/18 18:15 [facility] Medical Decision Making Medical Screen Exam Complete: Yes Emergency Medical Condition: Yes Medical Record Reviewed: Yes Differential Diagnosis Tonsillitis, viral pharyngitis, mono, allergies, less likely peritonsillar abscess Narrative Course 32-year-old female with continued sore throat. She was seen on March 30 and her influenza and rapid strep were negative. She was seen here on April 01 and given amoxicillin, which she said she did not complete the antibiotic. Her symptoms started again 2 weeks ago. Her oropharynx is unremarkable. I do not see any erythema, exudate, edema. She is afebrile and nontoxic-appearing. Reports subjective fevers. Denies vomiting. Will check rapid strep and mono screen. Orders entered. 1839: Rapid strep negative. Monoscreen pending. Instructed patient to follow- up with ENT. Magic mouthwash prescribed for home. Instructed patient to follow up with primary care provider. Patient verbalizes understanding and agreement with treatment plan. Patient is medically cleared and stable for discharge. Discussed reasons to return to the emergency department. Patient agrees with treatment plan. The patients vital signs are stable and the patient is stable for outpatient follow-up and treatment. Patient discharged home, stable and in no acute distress. Diagnosis Primary Impression: Throat irritation Referrals: [facility] Ear [facility] N[facility] Throat Specialist Primary Care Physician Patient Instructions: General Instructions, Pharyngitis (ED) Additional Instructions: Use warm saltwater gargles to soothe throat pain Use an air humidifier/turn off ceiling fans Use throat lozenges as needed for sore throat Ibuprofen or Tylenol as directed and as needed for pain Follow-up with your primary care provider Follow-up with ear nose throat specialist Return immediately to the emergency department with worsening of symptoms Med/Other Pt SpecificInfo: Prescription(s) given Scripts Vkjrdtywnkaozfx-Qlcojmipx-Wkb-Alum-Simeth Liq (Magic Mouthwash Pediatric/Adult Liq) 60 Ml Susp 5 ML SWISH-SWAL ACHS Y for SORE THROAT, #60 ML 0 Refills Each 5mL contains: Diphenydramine 4.5mg, Viscous Lidocaine 2% 10mg, Maalox Advanced Regular Strength 2.7ml Prov: Gabrielle Nova 04/28/18 Disposition: 01 DISCHARGE HOME Condition: Stable Gabrielle Nova Apr 28, 2018 18:19
[2018-04-28] MEDS ORDERED: MAGICPED SWISH-SWAL (18:41)
[2018-04-28 20:20] LABS: MONOSCREEN NEG (NEG)
== END 2018-04-28 18:46 | disposition home or self-care (01) ==
LOC: PHEFT 17:37
DX: R09.89 Other specified symptoms and signs involving the circulatory and respiratory systems (principal); J02.9 Acute pharyngitis, unspecified; F41.9 Anxiety disorder, unspecified; F17.200 Nicotine dependence, unspecified, uncomplicated
CPT/HCPCS: 86308; 87081; 87880; 99283

== ENCOUNTER 2018-05-14 20:41 | Emergency (ER) | payer SELFPAY ==
[~2018-05-14] VITALS: Ht 157.5 cm; Wt 68.0 kg
[~2018-05-14 20:41] MED LIST changes: -AMOX500T PO; +MAGICPED SWISH-SWAL
[2018-05-14 20:46] VITALS: BP 124/70; PULSE 85; RESP 16; TEMP 98.5; O2SAT 100
--- NOTE | 2018-05-14 21:24 | PD ---
HPI Chief Complaint: Headache Time Seen by Provider: 20:59 Travel History International Travel<30 days: No Contact w/Intl Traveler<30days: No Traveled to known affect area: No History of Present Illness HPI 32-year-old white female presents emergency department with a 2 month history of sinus congestion, headaches, ear pain, sore throat, sneezing and general malaise. She states that she had taken a course of antibiotics in the past without relief. She has been seen at other facilities and had a strep throat test done along with a mono which were negative. She had a flu test done here on another occasion for the same presentation. She has not follow-up with a primary care doctor. She has not taken any zyxb-eoy-wmxvgia medications. Symptoms are moderate. No alleviating factors. No exacerbating factors. History Past Medical Histgory Medical History: Denies Significant Hx Tetanus Vaccination: < 5 Years LMP: 05/07/18 Social History Alcohol Use: No (FORMER) Tobacco Use: Yes (1PPD) Allergies-Medications (Allergen,Severity, Reaction): Coded Allergies: doxycycline (Verified Allergy, Severe, Rash, 05/14/18) metronidazole (Verified Adverse Reaction, Severe, GI upset, 05/14/18) Reported Meds & Prescriptions Reported Meds & Active Scripts Active Magic Mouthwash Pediatric/Adult Liq (Lidocaine/Diphenhydr/Alum/Mg/Simeth) 60 Ml Susp 5 Ml SWISH-SWAL ACHS PRN Each 5mL contains: Diphenydramine 4.5mg, Viscous Lidocaine 2% 10mg, Maalox Advanced Regular Strength 2.7ml Review of Systems General / Constitutional: No: Fever, Chills Eyes: No: Visual changes HENT: Positive: Headaches, Sore Throat, Rhinitis, Congestion, Earache, No: Dental Difficulties Cardiovascular: No: Chest Pain or Discomfort Respiratory: Positive: Cough, Sneezing, No: Shortness of Breath Gastrointestinal: No: Nausea, Abdominal Pain Genitourinary: No: Dysuria Musculoskeletal: No: Pain Skin: No Rash Neurologic: No: Weakness Psychiatric: No: Depression Endocrine: No: Polydipsia Hematologic/Lymphatic: No: Easy Bruising Physical Exam Narrative GENERAL: Well-developed, well-nourished in no apparent distress. Nontoxic appearing. HEAD: Normocephalic, atraumatic. No pain on percussion of the sinuses. EYES: Pupils equal round and reactive. Extraocular motions intact. No scleral icterus. No injection or drainage. ENT: Nose clear. Throat without erythema, tonsillar hypertrophy or exudate. Uvula midline. Airway patent. NECK: Trachea midline. Supple, nontender, moves head freely. No central bony tenderness or spasm. CARDIOVASCULAR: Regular rate and rhythm without murmurs, gallops, or rubs. RESPIRATORY: Clear to auscultation. Breath sounds equal bilaterally. No wheezes , rales, or rhonchi. GASTROINTESTINAL: Abdomen soft, non-tender, nondistended. No hepato-splenomegaly , or palpable masses. No guarding. EXTREMITIES: No clubbing, cyanosis, or edema. No joint tenderness. BACK: Nontender without deformity. No flank tenderness. NEUROLOGICAL: Awake, alert and oriented x 3 .Cranial nerves grossly intact. Motor and sensory grossly within normal limits. Normal speech. Data Data Last Documented VS Vital Signs Date Time Temp Pulse Resp B/P (MAP) Pulse Ox O2 Delivery O2 Flow Rate FiO2 05/14/18 20:46 98.5 85 16 124/70 (88) 100 MDM Medical Screen Exam Complete: Yes Emergency Medical Condition: No Differential Diagnosis Differential diagnosis: Sinusitis, allergic rhinitis, viral syndrome, otitis media, strep throat Narrative Course A medical screening exam was performed: At the time of evaluation the presenting medical condition was determined not to be of an emergent nature. The patient was given the option of receiving additional care, but declined. Patient was given options for additional community resources from which to obtain care. The Patient Has Been advised to seek medical attention for their presenting complaint. The patient has been advised to return to the ER at any time if an emergent condition develops. Primary Impression: Encounter for medical screening examination Condition: Stable Derick Haider May 14, 2018 21:23
== END 2018-05-14 21:28 | disposition left against medical advice (07) ==
LOC: NEPD 20:41
DX: R51 Headache (principal); H92.09 Otalgia, unspecified ear; R07.0 Pain in throat; R06.7 Sneezing; R53.81 Other malaise; F17.200 Nicotine dependence, unspecified, uncomplicated
CPT/HCPCS: 99281